=== PATIENT | female | born 1955 | race American Indian/Alaskan Native ===

== ENCOUNTER 2016-10-17 10:06 | Outpatient (CLI) | payer OTHER ==
--- NOTE | 2016-10-18 08:33 | Ultrasound Report ---
ULTRASOUND SOFT TISSUE HEAD AND NECK HISTORY: Malignant neoplasm of thyroid gland. FINDINGS: Compared to the exam dated 02/23/15. No thyroid tissue is demonstrated on the ultrasound consistent with history of thyroidectomy in 2007. Soft tissue structures of the neck and airway are within normal limits. There are a few small, benign appearing lymph nodes in the neck measuring less than 10 mm which were measured by the technologist. These lymph nodes demonstrate normal architecture. No pathologic adenopathy is detected. No significant change since 2014. IMPRESSION: Thyroidectomy. No suspicious neck mass is demonstrated on ultrasound.
== END 2016-10-17 10:07 | disposition home or self-care (01) ==
LOC: US 10:06
PROVIDERS: ATTEND Internal Medicine Endocrinology, Diabetes & Metabolism
DX: C73 Malignant neoplasm of thyroid gland (principal); E89.0 Postprocedural hypothyroidism
CPT/HCPCS: 76536

== ENCOUNTER 2016-11-14 09:57 | Outpatient (CLI) | payer OTHER ==
--- NOTE | 2016-11-14 14:58 | Mammography Report ---
The patient had this exam on the date indicated above. It was indicated to us that previous films should be available that would be helpful in providing optimal evaluation with regards to the current study. A final report will be issued, pending receipt of the prior study. CAD was utilized.
--- NOTE | 2016-11-15 08:23 | Ultrasound Report ---
ULTRASOUND PELVIC COMPLETE ULTRASOUND TRANSVAGINAL HISTORY: Pelvic pain. FINDINGS: Transabdominal and transvaginal ultrasound imaging was performed. The uterus is not identified consistent with history of hysterectomy. The ovaries are not visualized or obscured by bowel gas. There is no evidence for pelvic cyst, mass or fluid collection. IMPRESSION: Hysterectomy. No abnormality identified.
== END 2016-11-14 09:58 | disposition home or self-care (01) ==
LOC: MAMMO 09:57
PROVIDERS: ATTEND Family Medicine
DX: Z12.31 Encounter for screening mammogram for malignant neoplasm of breast (principal); R10.2 Pelvic and perineal pain; Z90.710 Acquired absence of both cervix and uterus
CPT/HCPCS: 76830; 76856; G0202; 77067

== ENCOUNTER 2018-08-31 13:25 | Outpatient (CLI) | payer OTHER ==
--- NOTE | 2018-08-31 14:03 | Mammography Report ---
Left mammogram: Patient presenting with generalized periodic left breast pain. Routine imaging of the left breast as compared to prior examination in November of 2016. The breast pattern is generally fatty replaced except for an asymmetric area fibroglandular tissue containing a biopsy marker. The breast pattern is unchanged. CAD used. Impression: Stable left mammogram. No suspicious findings. Recommendation: Clinical followup. Annual mammogram followup. Additional evaluation at this time should be based in your concern. BI-RADS CATEGORY: 1 = Negative ACR BI-RADS MAMMOGRAPHIC CODES: 0 = Needs additional imaging evaluation; 1 = Negative; 2 = Benign; 3 = Probably benign; 4 = Suspicious; 5 = Malignant; 6 = Known biopsy-proven malignancy COMMENT: 1. Dense breast tissue, i.e., adenosis, fibrocystic changes, etc., may obscure an underlying neoplasm. 2. Approximately 10% of cancers are not detected with mammography. 3. A negative mammography report should not delay biopsy if a clinically suspicious mass is present.
== END 2018-08-31 13:26 | disposition home or self-care (01) ==
LOC: SPVWC 13:25
PROVIDERS: ATTEND Family Medicine
DX: N64.4 Mastodynia (principal)

== ENCOUNTER 2019-10-20 09:45 | Outpatient (CLI) | payer OTHER ==
--- NOTE | 2019-10-20 14:30 | Mammography Report ---
BONE DEXA CLINICAL: Postmenopausal. TECHNIQUE: 2 site bone DEXA performed on an Hologic scanner. FINDINGS: The average BMD of the lumbar spine L1-L4 is 1.103g/cm squared with a T score of -0.4 and a Z score o f +1.3. The average total BMD of the left hip is 1.094 g/cm squared with a T score of +0.4and a Z score of +1 .3. IMPRESSION: 1. WHO classification: Normal with average fracture risk based on both spine and left hip measurement s. RECOMMENDATION: Clinical correlation and routine screening. Definitions: BMD equal bone mineral density T score = BMD related to peak bone mass of young adult ([place] expressed an standard deviation) Z score = age-matched BMD expressed in SD World health organization (WHO) diagnostic criteria Normal T score greater than equal to 1 standard deviation Osteopenia T score between -1 and -2.4 standard deviation Osteoporosis T score -2.5 standard deviation or below. Note: BMD is not the only risk factor for fracture; also consider factors such as the patient's age, risk of falling, previous osteoporotic fracture, family history of osteoporotic fractures, current sm oker and low body weight. Z scores are not calculated if greater than 80 years of age. Signer Name: Cedric Reaves MD Signed: 10/20/2019 2:26 PM Workstation Name: [id number]
--- NOTE | 2019-10-20 15:39 | Mammography Report ---
DIGITAL SCREENING MAMMOGRAM WITH CAD, 10/20/2019 INDICATION: Routine screening mammography. TECHNIQUE: Digital bilateral 2D mammography was obtained in the craniocaudal and mediolateral obliq ue projections. This examination was interpreted with the benefit of Computer-Aided Detection analysi s. COMPARISON: 08/31/2018 left mammogram and 11/14/2016 and 05/10/2014 bilateral mammograms. FINDINGS: Breast Density: The breasts are almost entirely fatty. A previously biopsied mass in the inferior left breast is more dense and larger compared to previous exams. No architectural distortion or suspicious calcifications. There is no evidence of dominant mas s, suspicious calcifications or architectural distortion in the right breast. IMPRESSION: Left breast mass requiring further imaging. Recommend recall for left spot compression vi ews and targeted left breast ultrasound. Follow up recommendation: Special View: Spot Category 0: Incomplete. Needs additional imaging evaluation and/or prior mammograms for comparison. A "normal" or negative report should not discourage follow up or biopsy of a clinically significant f inding. A written summary of these findings will be mailed to the patient. The patient will be entered into a mammography reporting system which will generate a reminder letter for the patient's next appointmen t at the appropriate interval. The [employer] recommends yearly mammograms starting at age 40 and continuing as l estefany as a woman is in good health. Breast MRI is recommended for women with an approximate 20-25% or greater lifetime risk of breast cancer, including women with a strong family history of breast or ova osmin cancer or who have been treated for Hodgkin's disease. Signer Name: Cedric Reaves MD Signed: 10/20/2019 3:35 PM Workstation Name: [id number]
== END 2019-10-20 09:46 | disposition home or self-care (01) ==
LOC: SPVWC 09:45
PROVIDERS: ATTEND Family Medicine
DX: Z12.31 Encounter for screening mammogram for malignant neoplasm of breast (principal); Z13.820 Encounter for screening for osteoporosis; N64.89 Other specified disorders of breast; Z78.0 Asymptomatic menopausal state
CPT/HCPCS: 77067; 77080

== ENCOUNTER 2020-12-07 09:27 | Outpatient (CLI) | payer OTHER ==
--- NOTE | 2020-12-07 11:33 | Mammography Report ---
DIGITAL SCREENING MAMMOGRAM WITH CAD, 12/07/2020 CLINICAL INFORMATION / INDICATION: Routine screening mammography. TECHNIQUE: Digital bilateral 2D mammography was obtained in the craniocaudal and mediolateral obliqu e projections. This examination was interpreted with the benefit of Computer-Aided Detection analysis . COMPARISON: 10/20/2019, 11/14/2016, 08/31/2018 FINDINGS: Breast Density: The breasts are almost entirely fatty. No dominant mass, suspicious calcifications, or architectural distortion in either breast. Biopsy clip is again noted in the left breast. IMPRESSION: No mammographic evidence of malignancy. Follow up recommendation: Routine yearly BI-RADS Category 2: Benign. A "normal" or negative report should not discourage follow up or biopsy of a clinically significant f inding. A written summary of these findings will be mailed to the patient. The patient will be entered into a mammography reporting system which will generate a reminder letter for the patient's next appointmen t at the appropriate interval. The [employer] recommends yearly mammograms starting at age 40 and continuing as l estefany as a woman is in good health. Breast MRI is recommended for women with an approximate 20-25% or greater lifetime risk of breast cancer, including women with a strong family history of breast or ova osmin cancer or who have been treated for Hodgkin's disease. Signer Name: Sharon Tinoco MD Signed: 12/07/2020 11:28 AM Workstation Name: [id number]
== END 2020-12-07 09:28 | disposition home or self-care (01) ==
LOC: SPVWC 09:27
PROVIDERS: ATTEND Family Medicine
DX: Z12.31 Encounter for screening mammogram for malignant neoplasm of breast (principal)
CPT/HCPCS: 77067